=== PATIENT | female | born 1965 | race Caucasian/White ===

== ENCOUNTER 2019-04-15 12:02 | Emergency (ER) | payer MEDICAID ==
[2019-04-15] MEDS: KETOROLAC 30 MG INJ IM (14:20)
[2019-04-15 14:36] LABS: ADD UMIC NO; UR ASCORBIC ACID 40 mg/dL (NEGATIVE); UR BILIRUBIN (Dip) NEGATIVE (NEGATIVE); UR BLOOD (Dip) NEGATIVE (NEGATIVE); UR CLARITY SLIGHTLY CLOUDY (CLEAR); UR COLOR YELLOW (YELLOW); UR GLUCOSE (Dip) NEGATIVE (NEGATIVE); UR KETONES (Dip) NEGATIVE (NEGATIVE); UR LEUKOCYTE ESTERASE (Dip) NEGATIVE Leu/ul (NEGATIVE); UR NITRITE (Dip) NEGATIVE (NEGATIVE); UR RBC 1 /HPF (0-5); UR SPECIFIC GRAVITY (Dip) 1.021 (1.003-1.030); UR SQUAMOUS EPITHELIAL CELL FEW /HPF (FEW); UR TOTAL PROTEIN (Dip) NEGATIVE (NEGATIVE); UR UROBILINOGEN (Dip) NEGATIVE (NEGATIVE); UR WBC 1 /HPF (0-5)
== END 2019-04-15 14:56 | disposition home or self-care (01) ==
LOC: FTE 12:02
DX: M54.5 Low back pain (principal); I10 Essential (primary) hypertension; R11.0 Nausea; R20.0 Anesthesia of skin; R06.02 Shortness of breath; Z79.82 Long term (current) use of aspirin
CPT/HCPCS: 81001; 81003; 96372; 99284-25